=== PATIENT | female | born 1955 | race Caucasian/White ===

== ENCOUNTER 2025-05-25 06:39 | Day surgery (SDC) | payer MEDICARE ==
[2025-05-25] MEDS ORDERED: Propofol 200 MG/20 ML SDV ONE (07:31)
[2025-05-25] MEDS ORDERED: fentaNYL 50 MCG/ML SDV ONE (07:31)
[2025-05-25] MEDS: Lactated Ringers 1,000 ML IV SCH (07:40)
== END 2025-05-25 09:38 | disposition home or self-care (01) ==
LOC: JP.SDS 06:39
PROVIDERS: ATTEND Surgery
DX: Z12.11 Encounter for screening for malignant neoplasm of colon (principal); Z88.0 Allergy status to penicillin
CPT/HCPCS: G0121; J2704; J3010; J7120; 00812-QZ